=== PATIENT | male | born 1955 | race Caucasian/White ===

== ENCOUNTER → 2023-10-14 06:31 | Outpatient (REF) | payer MEDICARE, OTHER, SELFPAY | LOC: MRI 3T 06:31 | PROVIDERS: ATTENDING PHYSICIAN Physical Medicine & Rehabilitation; FAMILY PHYSICIAN Family Medicine | DX: M54.16 Radiculopathy, lumbar region (principal) | CPT/HCPCS: 72148 ==

== ENCOUNTER 2024-10-04 21:03 | Inpatient (IN) | payer MEDICARE, OTHER, SELFPAY ==
[2024-10-04] VITALS (9 sets, daily range): BP systolic 146–173; BP diastolic 78–98; BMI 27.7
[2024-10-04] MEDS: TORADOL 15 MG IV ×2 (14:53→16:38)
[2024-10-04] MEDS: ZOFRAN 4 MG IV (14:54)
[2024-10-04 15:08] LABS: % Basophils 0.5 % (0-2); % Eosinophils 2.4 % (0-6); % Immature Granulocytes 0.6 % (0-0.5); % Lymphocytes 15.9 % (20.5-51.1); % Monocytes 7.2 % (1.7-9.3); % Neutrophils 73.4 % (42.2-75.2); Absolute Basophils 0.1 10^3/uL (0-0.2); Absolute Eosinophils 0.3 10^3/uL (0-0.7); Absolute Immature Granulocytes 0.1 10^3/uL (0-0.05); Absolute Lymphocytes 1.8 10^3/uL (1.2-3.4); Absolute Monocytes 0.8 10^3/uL (0.1-0.6); Absolute Neutrophils 8.4 10^3/uL (1.4-6.5); Hemoglobin 14.9 g/dL (13.0-18.0); Mean Corp Hgb Conc. 34.7 g/dL (33.0-37.0); Mean Corpuscular Hgb 31.6 pg (27.0-31.0); Mean Corpuscular Volume 91.1 fL (80.0-94.0); Mean Platelet Volume 10.2 fL (7.4-10.4); Nucleated Red Blood Cells % 0 % (-); Platelet Count 223 10^3/uL (130-400); Red Blood Cell Count 4.72 10^6/uL (4.70-6.10); Red Cell Dist. Width 13.1 % (11.5-14.5); White Blood Cell Count 11.5 10^3/uL (4.8-10.8)
[2024-10-04 15:21] LABS: ALT (SGPT) 42 U/L (0-50); AST (SGOT) 39 U/L (17-59); Albumin 4.1 g/dl (3.5-5.0); Alkaline Phosphatase 132 U/L (38-126); Blood Urea Nitrogen 22 mg/dl (9-20); Calcium 9.5 mg/dl (8.4-10.2); Carbon Dioxide 26 mmol/L (22-30); Chloride 105 mmol/L (98-107); Estimated Creatinine Clearance 69 ml/min; Glucose 135 mg/dl (70-99); Potassium 5.3 mmol/L (3.5-5.1); Sodium 138 mmol/L (135-145); Total Bilirubin 0.9 mg/dl (0.2-1.3); Total Protein 6.9 g/dl (6.3-8.2); eGFR > 60.00
--- NOTE | 2024-10-04 17:04 | ED.GENMED ---
History of Present Illness
General
Chief Complaint: Flank Pain
Source: patient
Exam Limitations: none
Time Seen by Provider: 10/04/24 14:36
Nursing documentation reviewed up to this point in time: agreed with
History of Present Illness
History of Present Illness:
69-year-old male presenting to the emergency department today with concerns of left-sided flank discomfort over the past few hours described as sharp severe with associated nausea. Feels similar to his previous kidney stones.
Past History
Past History
ED Past Medical History: Negative CAD, HTN or Hypercholesterolemia
ED Past Surgical History: Negative Cardiac
Social History
Tobacco: Non-smoker
Alcohol: None
Drug: None
Personal:
Living: with family
Employment: Employed
Family History
Family History: Early CAD (Age 32 and his brother) and CAD
Review of Systems
Review of Systems
Allergies reviewed?: Yes
All Other Systems: ROS reviewed and negative except as documented in HPI and ROS
Phy Exam
Physical Exam
Physical Exam:
GENERAL: Alert , in no apparent distress
EYE: pupils equal and reactive
NECK: Supple, no significant adenopathy.
ENT: o/p clr, mmm.
CARDIAC: Regular rate and rhythm .
LUNGS: Clear breath sounds bilaterally, no acute respiratory distress, no wheezes/rales/rhonchi
ABDOMEN: Soft, without focal tenderness, no r/g, no cvat
NEUROLOGICAL: Alert and oriented, no focal neuro deficits
SKIN: Warm and dry, skin intact.
MUSCULOSKELETAL: No edema, well perfused.
PSYCH: Normal and appropriate interaction.
Course
Orders/Labs/Results
Orders:
Orders
10/04/24 14:42
Ketorolac [Toradol] 15 mg IV NOW STA
Ondansetron Injectable [Zofran] 4 mg IV NOW STA
10/04/24 14:43
CT Abd/pel Without Iv Or Oral Urgent
Comment:
Reason For Exam: left flank pain
10/04/24 14:56
Complete Blood Count/With Diff Urgent
Comprehensive Metabolic Panel Urgent
10/04/24 16:37
Ketorolac [Toradol] 15 mg .ROUTE .STK-MED ONE
10/04/24 16:38
Ketorolac [Toradol] 15 mg IV NOW STA
10/04/24 17:03
0.9% Sodium Chloride 1000 ml [Nss] 1,000 ml IV BOLUS
10/04/24 17:22
0.9% Sodium Chloride 1000 ml [Nss] 1,000 ml IV BOLUS
Morphine Sulfate 4 mg IV NOW STA
10/04/24 17:37
Urinalysis Reflex To Culture Urgent
Date Specimen was Collected: 10/04/24
Time Specimen was Collected: 17:27
Urine Microscopic Reflex Cult Urgent
Urine Culture Urgent
GURDEEP Source: U
Specimen Description:
Date Specimen was Collected: 10/04/24
Time Specimen was Collected: 17:27
10/04/24 18:27
Morphine Sulfate 4 mg IV NOW STA
10/04/24 18:37
Atorvastatin [Lipitor] 80 mg PO NOW STA
Gabapentin [Neurontin] 300 mg PO NOW STA
Sotalol [Betapace] 80 mg PO NOW STA
10/04/24 18:38
Ezetimibe [Zetia] 10 mg PO ONCE ONE
10/04/24 19:36
Tamsulosin [Flomax] 0.4 mg PO NOW STA
10/04/24 20:14
CefTRIAXone [Rocephin] 1,000 mg IV NOW STA
Abnormal Lab Results
10/04/24 10/04/24
14:56 17:37
WBC 11.5 H 10^3/uL
(4.8-10.8)
MCH 31.6 H pg
(27.0-31.0)
Abs Immat Gran (auto) 0.1 H 10^3/uL
(0-0.05)
Absolute Neuts (auto) 8.4 H 10^3/uL
(1.4-6.5)
Absolute Monos (auto) 0.8 H 10^3/uL
(0.1-0.6)
Immature Gran % 0.6 H %
(0-0.5)
Lymphocytes % 15.9 L %
(20.5-51.1)
Potassium 5.3 H mmol/L
(3.5-5.1)
BUN 22 H mg/dl
(9-20)
Glucose 135 H mg/dl
(70-99)
Alkaline Phosphatase 132 H U/L
(38-126)
Ur Occult Blood Reflex 4+ A
(Negative)
Leukocyte Esterase Rfl 2+ A
(Negative)
Urine RBC 60-70 A /HPF
(0-2)
Urine WBC (Reflex) 21-25 A /HPF
(0-5)
Urine Bacteria (Reflex) Few A
(Negative)
Urine Albumin (Reflex) 2+ A
(Neg - Trace)
10/04/24 14:56
10/04/24 14:56
Vital Signs
Initial and Last Documented VS:
Initial Vital Signs
Temp Pulse Resp BP Pulse Ox
97.6 F 64 16 150/93 98
10/04/24 14:23 10/04/24 14:23 10/04/24 14:23 10/04/24 14:23 10/04/24 14:23
Last Documented Vital Signs
Temp Pulse Resp BP Pulse Ox
97.6 F 71 12 156/93 96
10/04/24 14:23 10/04/24 20:00 10/04/24 20:00 10/04/24 20:00 10/04/24 19:45
MDM/Problems Addressed
MDM/Problems Addressed:
69-year-old male presenting to the emergency department today with concerns of left-sided flank discomfort over the past few hours. Associated nausea feel similar to previous kidney stones. On arrival vital signs are normal. Patient no distress
no reproducible pain. CT scan showing 6.5 mm stone to the left ureter. Labs without emergent findings patient given 2 doses of Toradol still with significant pain was given dose of morphine still pain significant given second dose still with
ongoing pain Case then discussed with urology they plan to take him to the OR tomorrow. Plan for n.p.o. midnight. Was given a dose of ceftriaxone as urinalysis showed some evidence of inflammation.
*Critical Care Note
Total Time (30-74mins, 75-104mins- exclusive of procedures): Not Applicable
ED Attending Note
-
Portions of this chart may have been created with voice recognition software.� Occasional wrong word or��sound alike� substitutions may have occurred due to the inherent limitations of voice recognition software.
Discharge Plan
Departure
Patient Disposition: Admit
Date of Disposition: 10/04/24
Time of Disposition: 20:35
Admit to: Med/Surg
Admit to doctor: Urszula
Presentation/result/management discussed w/ accepting MD/DO: Hospitalist
Patient with high blood pressure during this ER visit?: No
Condition: Good
Covid-19: Not Applicable
Discharge Problem:
Calculus, ureteral
Prescriptions:
No Action
aspirin 81 MG tablet,delayed release (DR/EC)
81 mg PO DAILY
nitroglycerin 0.4 MG tablet, sublingual
0.4 mg sublingual [id number] PRN (Reason: chest pain) Qty: 30 3RF
multivitamin Tablet
1 tab PO DAILY
atorvastatin 80 mg Tablet
80 mg PO HS
cetirizine [Zyrtec] 10 mg Tablet
10 mg PO HS
sotalol 120 mg Tablet
120 mg PO BID
lisinopril 10 mg Tablet
10 mg PO DAILY
gabapentin 300 mg Capsule
300 mg PO BID
zolpidem [Ambien] 10 mg Tablet
10 mg PO HSPRN PRN (Reason: SLEEP)
finasteride [Proscar] 5 mg Tablet
5 mg PO DAILY
Eliquis 5 mg Tablet
5 mg PO BID
Repatha SureClick 140 mg/mL Pen Injector
140 mg SC Q2W
Glucosamine Chondroitin
1 cap PO BID
Theralith XR 3.75-45-45-49.5 mg Tablet Extended Release
2 tab PO BID
pantoprazole [Protonix] 40 mg tablet,delayed release (DR/EC)
40 mg PO DAILY Qty: 30 0RF
Rx Instructions:
Daily for 30 days post op, then STOP
Referrals:
Rosemarie Lazo MD [Family Provider] -
Interventions
Interventions:
*Risk Screen - Suicide Last Done: 10/04/24 14:23
*General Assessment Last Done: 10/04/24 14:23
*Neglect/Abuse Screening Last Done: 10/04/24 19:45
*ED COVID-19 Vaccine History Last Done: 10/04/24 14:23
QB-Zrxvpq-Jwhpbjaflb Assessment Last Done: 10/04/24 19:11
ED-Male Genitourinary Assessment Last Done: 10/04/24 19:12
Discharge Date and Time
Print Language: DANISH
[2024-10-04] MEDS: NSS 1000 IV ×3 (17:31→23:08)
[2024-10-04] MEDS: MORPHINE SULFATE 4 MG IV ×3 (17:33→23:20)
[2024-10-04 17:57] LABS: Urine Albumin 2+ (Neg - Trace); Urine Bilirubin Negative (Negative); Urine Character Clear (Clear); Urine Color Yellow; Urine Glucose Negative (Negative); Urine Ketone Negative (Negative); Urine Leukocyte 2+ (Negative); Urine Nitrite Negative (Negative); Urine Occult Blood 4+ (Negative); Urine Urobilinogen Negative (Neg - 1+)
[2024-10-04 18:14] LABS: Urine Hyaline Cast 0-2 /LPF (0-2); Urine Mucus Moderate; Urine Squamous Cell 21-25 /LPF (Few)
[2024-10-04 18:15] LABS: Urine Red Blood Cell 60-70 /HPF (0-2); Urine White Cell 21-25 /HPF (0-5)
[2024-10-04 18:16] LABS: Urine Bacteria Few (Negative)
[2024-10-04] MEDS: NEURONTIN 300 MG PO (18:48)
[2024-10-04] MEDS: BETAPACE 80 MG PO (18:48)
[2024-10-04] MEDS: ZETIA 10 MG PO (19:22)
[2024-10-04] MEDS: LIPITOR 80 MG PO (19:22)
[2024-10-04] MEDS: FLOMAX 0.4 MG PO (19:47)
[2024-10-04] MEDS: ROCEPHIN 1000 MG IV (20:29)
--- NOTE | 2024-10-04 20:33 | W.PN.URO.CBU ---
Today's Communication / Plan
-
npo for op room mon appox 230
Assessment / Plan
-
mid left 6.5 uretal stone no fevr buit pain will admit rtrial of passage but if fails then left u/l/s tomorrow revoiewed cat scan did hand p consented alt tx and complication described spoke with also
Diagnosis
-
Date of Service: October 04, 2024
-
Patient Diagnosis:left ureteral stone with intractable pain left hydro
Post Op Day:
Subjective
-
colic no fevr chills
Objective
-
Vital Signs
Temp Pulse Resp BP Pulse Ox
97.6 F 71 12 156/93 96
10/04/24 14:23 10/04/24 20:00 10/04/24 20:00 10/04/24 20:00 10/04/24 19:45
Laboratory Results
10/04/24 14:56
10/04/24 14:56
Review of Systems
-
: Flank Pain
Physical Exam
-
General - well developed, well nourished, no acute distress
Chest - clear bilaterally
Abdomen - soft, non-tender, positive bowel sounds, left CVAT, no incisional pain or distention
Genitalia - normal
Rectal - normal
Skin - warm & dry with no rash
Neuro - AOx3, no motor deficits
Extremities - no clubbing, no cyanosis, no edema
Incision - clean, dry
Dressing - clean, dry, intact
Care Review
Data Reviewed
Discussed with: Hospitalist, Nursing and Family
CT Scan: Image Pers Reviewed
--- NOTE | 2024-10-04 20:35 | HPS.HSE ---
Family Physician
-
Family Physician: Rosemarie Lazo MD
Chief Complaint
-
Flank pain
History of Present Illness
This is a 69-year-old with past medical history significant for atrial fibrillation status post ablation and not currently on anticoagulation, CAD status post LAD stenting, RCA occlusion, on aspirin, hyperlipidemia, hypertension, nephrolithiasis who
presents to the emergency department with left-sided flank pain.
Patient reports acute onset of left-sided flank pain at around 10 AM today. He reports associated vomiting. He denies any fevers or chills. He denies any hematuria. Reports prior history of nephrolithiasis with passing about 1 mm stones in the
past. Patient denies any dysuria, frequency urgency or incontinence.
In the emergency department he was afebrile, blood pressure was 156/90 with a pulse of 71. CBC shows a white count of 11.5 but otherwise unremarkable. Electrolytes BUN/creatinine within the normal range except for a potassium of 5.3. His UA is
positive for leukocyte esterase WBCs and a few bacteria as well as blood. CT of the abdomen pelvis shows a 6.5 mm obstructing left mid ureteral stone, numerous left kidney nephroliths with the largest being about 5 mm.
Medical History
Past Medical History
Past Medical History: Reports Arrhythmia (Paroxysmal atrial fibrillation status post ablation), CAD (Status post stenting to LAD, RCA occlusion), HTN, Hypercholesterolemia and Other (Nephrolithiasis)
Past Surgical History: Reports Other (Inguinal hernia repair)
Social History
Tobacco: Non-smoker
Alcohol: Occasional
Drug: None
Personal:
Living: With Family
Family History
Family History: Not pertinent
Allergies / Home Medications
Allergies reflects when Allergies were last updated in [facility].
Home Medications with original date entered in [facility]
Allergy/Medication List:
Allergies
Allergy/AdvReac Type Severity Reaction Status Date / Time
hydrocodone bitartrate Allergy Nausea / Verified 10/04/24 14:26
[From Vicodin] Vomiting
pollen extracts Allergy SEASONAL Verified 10/04/24 14:26
ALLERGIES
Sutures Allergy SEVERE Verified 10/04/24 14:26
SKIN
REACTION
Home Medications
aspirin 81 mg tablet,delayed release 81 mg PO DAILY 10/13/12
nitroglycerin 0.4 mg sublingual tablet 0.4 mg sublingual [id number] PRN chest pain #30 tabs 08/10/14
Glucosamine Chondroitin 1 cap PO BID 05/10/23
atorvastatin 80 mg tablet 80 mg PO HS 05/10/23
evolocumab 140 mg/mL subcutaneous pen injector (Repatha SureClick) 140 mg SC Q2W 05/10/23
gabapentin 300 mg capsule 300 mg PO BID 05/10/23
lisinopril 10 mg tablet 10 mg PO DAILY 05/10/23
multivitamin 1 tab PO DAILY 05/10/23
sotalol 80 mg tablet 80 mg PO BID 05/10/23
zolpidem 10 mg tablet (Ambien) 10 mg PO HSPRN PRN SLEEP 05/10/23
vit B6-mag cit,ox-potassium cit 3.75 mg-45 mg-45 mg-49.5 mg tablet ER (Theralith XR) 2 tab PO BID 06/24/23
pantoprazole 40 mg tablet,delayed release (Protonix) 40 mg PO DAILY #30 tabs 08/07/23
ezeimibe 10mg tablet, 10mg po daily
Review of Systems
-
Constitutional: Reports No Symptoms
EENT: Reports No Symptoms
Respiratory: Reports No Symptoms
Cardiac: Reports No Symptoms
Abdomen/GI: Reports Nausea and Vomiting
: Reports Flank Pain
Musculoskeletal: Reports No Symptoms
Skin: Reports No Symptoms
Neurological: Reports No Symptoms
Endocrine: Reports No Symptoms
Hematologic/Lymphatic: Reports No Symptoms
Psych: Reports No Symptoms
Physical Exam
Vital Signs
Vital Signs
Temp Pulse Resp BP Pulse Ox
97.6 F 71 12 156/93 96
10/04/24 14:23 10/04/24 20:00 10/04/24 20:00 10/04/24 20:00 10/04/24 19:45
Physical Exam
General: Well Developed, Well Nourished and Pain
HEENT: NormoCephalic, Anicteric, Moist mucous membranes, Atraumatic and PERRLA
Respiratory: Clear
Cardiac: S1/S2 and Regular Rhythm
Breast: Deferred by me
GI: Soft, Non Tender, Non Distended and Normal Bowel Sounds
Rectal: Deferred by Provider
Genito-urinary: Costovertebral angle tend
Musculoskeletal: No Clubbing, No Cyanosis and No Edema
Skin: Warm
Neuro: AO x 3 and Nonfocal/grossly intact
Hematologic/Lymphatic: No Lymphadenopathy
Psych: Calm
Laboratory Results
-
10/04/24 14:56
10/04/24 14:56
Laboratory Results
Total Bilirubin 0.9 mg/dl (0.2-1.3) 10/04/24 14:56
AST 39 U/L (17-59) 10/04/24 14:56
ALT 42 U/L (0-50) 10/04/24 14:56
Alkaline Phosphatase 132 U/L (38-126) H 10/04/24 14:56
Data Reviewed
-
CT Scan: Report Reviewed by me
Lab Data: Labs Reviewed by me
Old Records: Reviewed
Impression/Plan
-
IMPRESSION:
69 M, h/o afib s/p ablation not on AC (eliquis complicated by hematuria), CAD s/p stenting 10 years ago on aspirin presents with left flank pain and is found to have a 6.5 mm obstructing left mid ureteral stone. HD stable and afebrile. Mild
leukocytosis. U/A is equivocal but infected stone can't be ruled out. Renal function is preserved.
PLAN:
1. Obstructing left mid ureteral stone - Mild hydro with moderate left ureteral and pelvicalyceal dilation superior to the calculus.
- admit to med/surg
- npo after midnight
- urine cultures
- IV fluids, tamsulosin
- i/o
- ceftriaxone 1g daily
- pain control and antiemetics
- urology aware and consulted, likely OR at 2pm
2. AFIB
- continue sotalol 80 bid
3. CAD
- continue aspirin statin
- conintue lisinopril
DVT PPX - SCDs until procedure
Code status - Full Code
[2024-10-04] MEDS: NEURONTIN PO (23:52)
[2024-10-05] VITALS (8 sets, daily range): BP systolic 102–145; BP diastolic 62–94; BMI 28.5
[2024-10-05 07:41] LABS: Hematocrit 42.1 % (39.0-52.0); Hemoglobin 14.1 g/dL (13.0-18.0); Mean Corp Hgb Conc. 33.5 g/dL (33.0-37.0); Mean Corpuscular Hgb 30.9 pg (27.0-31.0); Mean Corpuscular Volume 92.3 fL (80.0-94.0); Platelet Count 191 10^3/uL (130-400); Red Blood Cell Count 4.56 10^6/uL (4.70-6.10); Red Cell Dist. Width 13.3 % (11.5-14.5); White Blood Cell Count 11.4 10^3/uL (4.8-10.8)
[2024-10-05 07:51] LABS: INR 1.09; PT 14.4 Sec (11.4-14.6)
[2024-10-05 08:16] LABS: Blood Urea Nitrogen 19 mg/dl (9-20); Calcium 8.8 mg/dl (8.4-10.2); Carbon Dioxide 27 mmol/L (22-30); Chloride 106 mmol/L (98-107); Estimated Creatinine Clearance 76 ml/min; Glucose 101 mg/dl (70-99); Magnesium 1.8 mg/dl (1.6-2.3); Potassium 4.3 mmol/L (3.5-5.1); Sodium 140 mmol/L (135-145); eGFR > 60.00
[2024-10-05] MEDS: FLOMAX PO (08:24)
[2024-10-05] MEDS: NEURONTIN PO (08:24)
[2024-10-05] MEDS: ZESTRIL PO (08:24)
[2024-10-05] MEDS: ASPIR LOW (ENTERIC COATED) PO (08:24)
[2024-10-05] MEDS: BETAPACE PO (08:24)
[2024-10-05] MEDS: NSS 1000 IV (08:53)
[2024-10-05] MEDS: BETAPACE 80 MG PO ×2 (08:55→19:11)
[2024-10-05] MEDS: ASPIR LOW (ENTERIC COATED) 81 MG PO (08:55)
[2024-10-05] MEDS: NEURONTIN 300 MG PO ×2 (08:55→17:36)
[2024-10-05] MEDS: ZESTRIL 10 MG PO (08:56)
[2024-10-05] MEDS: FLOMAX 0.4 MG PO (08:56)
--- NOTE | 2024-10-05 09:41 | PTCARENOTE ---
Patient placed on telemetry per protocol for medication Betapace; not initiation dose as patient confirmed taking medication at home.
--- NOTE | 2024-10-05 10:21 | CM ---
Patient seen at bedside with patient . Patient stated that he lives in a 2 story home with no DME at home. Patient is independent of ADL's and IADL's. Patient PCP is Dr. Lazo and he uses the [facility] in [place]. Patient stated that he plans to go to
[place] and will be visiting with grandchildren. Patient stated that he does not anticipate needing any further discharge needs. CM will continue to follow for discharge planning needs.
Plan; home with no needs anticipated at this time
--- NOTE | 2024-10-05 12:00 | W.SUR.PREOP ---
Pre-Operative Surgical Note
-
I have examined this patient prior to the performance of the scheduled procedure.
The patient's condition is unchanged from the time of the current History and
Physical and the patient is able to undergo the scheduled procedure.
To OR for left ULS vs. stent placement ONLY
[2024-10-05] MEDS: AFRIN NASAL SPRAY 1 SPRAYS NASAL (13:40)
--- NOTE | 2024-10-05 13:44 | W.PN.HOSP.TC ---
Addendum entered and electronically signed by Rashel Perez DO 10/06/24 14:19:
CDI: Paroxysmal AF
Original Note:
Today's Communication/Plan
-
* Continue angialgics and antiemetics.
* OR today per urology.
* NPO.
Assessment / Plan
Assessment / Plan
Assessment
Wesley Dorado, 69-year-old male, has had left-sided flank pain and vomiting since 10-04-24. History of nephrolithiasis. CT in the ED showed 6.5 mm obstructing left mid-ureteral stone. Leukocytosis and UA concerning for infection.
Impression and plan
LEFT ureterolithiasis with obstruction
Acute urinary tract infection secondary to above
Acute LEFT ureterohydronephrosis secondary to above
Multiple bilateral nephroliths
History of nephrolithiasis
- NPO; IV hydration.
- Continue tamsulosin and pain management.
- Ceftriaxone.
- Urology following; planned extraction with stent placement 10-02-24.
Atrial fibrillation
Status-post ablation
- Continue sotalol.
Primary hypertension
- Continue lisinopril.
Coronary artery disease
- Continue aspirin, atorvastatin.
Thromboprophylaxis
- Sequential compression device.
Code status
- Full.
Anticipated Discharge: Within 24 hours
Subjective/Interval History
-
Date of Service: October 05, 2024
Pain much better.
Objective Data
-
Labs:
Laboratory Results
10/05/24
07:26
WBC 11.4 H
Hgb 14.1
Hct 42.1
Plt Count 191
PT 14.4
INR 1.09
Sodium 140
Potassium 4.3
Chloride 106
Carbon Dioxide 27
BUN 19
Creatinine 1.0
Glucose 101 H
Calcium 8.8
Vital Signs:
Vital Signs
Temp Pulse Resp BP Pulse Ox
98.0 F 95 16 132/82 97
10/05/24 12:54 10/05/24 12:54 10/05/24 12:54 10/05/24 12:54 10/05/24 12:54
I&O
10/04/24 10/05/24 10/06/24
06:59 06:59 06:59
Output Total 1000 / 1000
Balance -1000 / -1000
Review of Systems
-
History Source: Patient
Constitutional: Reports No Symptoms
EENT: Reports No Symptoms Reported
Respiratory: Reports No Symptoms
Cardiac: Reports No Symptoms
Abdomen/GI: Reports No Symptoms
Genitourinary: Reports No Symptoms
Musculoskeletal: Reports No Symptoms
Skin: Reports No Symptoms
Neuro: Reports No Symptoms
Endocrine: Reports No Symptoms
Hematologic / Lymphatic: Reports No Symptoms
Allergy / Immunology: Reports No Symptoms
Physical Exam
-
General: No Apparent Distress and Comfortable
HEENT: Normocephalic, Atraumatic, Moist Mucous Membranes, Anicteric and No Ptosis
Respiratory: Clear to Auscultation and Non Labored Respirations
Cardiac: Regular Rhythm and S1/S2
GI: Soft, Nontender, Nondistended and No Hepatosplenomegaly
Genito-urinary: No Costovertebral Tender
Musculoskeletal: No Clubbing, No Cyanosis and No Edema
Skin: Warm, Dry and IV Access / Catheter Site
Neuro: Awake, Alert, Oriented, No Motor Deficits and No Sensory Deficits
Hematologic / Lymphatic: No Lymphadenopathy
Psych: Calm
--- NOTE | 2024-10-05 16:35 | W.IMMPOSTOP ---
Surgical Immed Post Op Note
-
Primary Surgeon: Gurwinder
Pre-op Diagnosis: Obstructing mid left ureteral stone
Post-op Diagnosis: Same
Procedure Performed: left URS/LL/stone extraction/stent placement
Anesthesia Type: LMA
Specimen / Cultures: stones for analysis/None
Estimated Blood Loss: Negligible
Drains: 4.7Fr x 26 cm JJ left ureteral stent
Complications: None
Operative Findings:
Impacted 7 mm stone within mid left ureter w/ significant urothelial inflammatory changes - stone fragmented and evacuated via basket in entirety.
Final KUB and cysto confirming satisfactory positioning of left ureteral stent at conclusion of procedure.
Scant bleeding from prostate gland - satisfactory hemostasis on final cysto (actively on ASA).
Spouse updated post-op via telephone.
[2024-10-05] MEDS: Pyridium 200 MG PO (16:43)
[2024-10-05] MEDS: DETROL LA 4 MG PO (16:43)
--- NOTE | 2024-10-05 16:43 | W.DCSUMMARY ---
Documented by User: Floyd Simmons MD, Resident 10/05/24 17:02
Discharge Summary
Discharge Data
Date of Admission: 10/04/24
Date of Discharge: 10/05/24
-
Pending Results: No
Hospital Course
Primary discharge diagnosis
* LEFT ureterolithiasis with obstruction
* Acute urinary tract infection secondary to above
* Acute LEFT ureterohydronephrosis secondary to above
Secondary discharge diagnoses
- Multiple bilateral nephroliths
- History of nephrolithiasis
- Atrial fibrillation, status-post ablation
- Primary hypertension
- Coronary artery disease
Hospital course
Wesley Dorado, 69-year-old male, was admitted with left-sided flank pain and vomiting on 10-04-24. CT in the ED showed 6.5 mm obstructing left mid-ureteral stone, and lab work was significant for leukocytosis and UA concerning for infection. He was
started on pain management, IV hydration, made NPO and admitted for stone removal. He underwent successful stone extraction and stent placement by urology on 10-05-24. His symptoms had resolved on day 2, and he tolerated the procedure well. He
remained asymptomatic and hemodynamically stable. He will be discharged home with tamsulosin and cefdinir, and instructions for pain management. Follow-up with primary in under a week, and urology for eventual stent removal.
Discharge Plan
-
Patient Disposition: Home (Routine Discharge)
Discharge Diagnosis/Procedures: obstructing left ureteral stone s/p left stent placement
Condition: Good
Diet: Regular
Activity: No restrictions
Driving Restrictions: No driving for 24 hours
Bathing Restrictions: None
Instructions: Ureteroscopy - Discharge instructions
Referrals:
Rodney Purdy MD [Active] -
(Please call Dr. Purdy's office on Saturday10/06/24 to schedule your outpatient stent removal procedure in 2 weeks (upon your return from [place]).
Dr. Purdy will leave samples of Gemtesa (medication to minimize stent discomfort) x2 weeks for you tomorrow to pickle cutter from the office.)
Rosemarie Lazo MD [Family Provider] - in less than 1 week
Prescriptions:
New
ibuprofen 400 mg tablet
400 mg PO Q6H PRN (Reason: Pain) 14 Days Qty: 60 1RF
acetaminophen 500 mg tablet
1,000 mg PO Q6H PRN (Reason: Pain) 14 Days Qty: 60 0RF
tamsulosin 0.4 mg capsule
0.4 mg PO HS 14 Days Qty: 14 0RF
cefdinir 300 mg capsule
300 mg PO Q12H 6 Days Qty: 12 0RF
Continued
aspirin 81 MG tablet,delayed release (DR/EC)
81 mg PO DAILY
nitroglycerin 0.4 MG tablet, sublingual
0.4 mg sublingual [id number] PRN (Reason: chest pain) Qty: 30 3RF
multivitamin Tablet
1 tab PO DAILY
atorvastatin 80 mg Tablet
80 mg PO HS
cetirizine [Zyrtec] 10 mg Tablet
10 mg PO HS
sotalol 120 mg Tablet
120 mg PO BID
lisinopril 10 mg Tablet
10 mg PO DAILY
gabapentin 300 mg Capsule
300 mg PO BID
zolpidem [Ambien] 10 mg Tablet
10 mg PO HSPRN PRN (Reason: SLEEP)
finasteride [Proscar] 5 mg Tablet
5 mg PO DAILY
Rx Instructions:
pt no longer taking- stopped a year ago
Repatha SureClick 140 mg/mL Pen Injector
140 mg SC Q2W
Glucosamine Chondroitin
1 cap PO BID
Theralith XR 3.75-45-45-49.5 mg Tablet Extended Release
2 tab PO BID
pantoprazole [Protonix] 40 mg tablet,delayed release (DR/EC)
40 mg PO DAILY Qty: 30 0RF
Rx Instructions:
Daily for 30 days post op, then STOP
10/05/24 - pt no longer taking
Held
Eliquis 5 mg Tablet
5 mg PO BID
Hold Instructions: Per cardiology
Rx Instructions:
pt no longer taking states ' i stopped over a year ago'
Discharge Orders:
Discharge Patient (As Directed); Ordered 10/05/24
Ordered By: Floyd Simmons
Discharge Date and Time
Print Language: NOR[place] KOREAN

Documented by User: Rashel Perez DO 10/05/24 17:15
Discharge Summary
Discharge Data
Date of Admission: 10/04/24
Date of Discharge: 10/05/24
Total time spent discharging patient (in min): 31
Discharge Plan
-
Patient Disposition: Home (Routine Discharge)
Discharge Diagnosis/Procedures: obstructing left ureteral stone s/p left stent placement
Condition: Good
Diet: Regular
Activity: No restrictions
Driving Restrictions: No driving for 24 hours
Bathing Restrictions: None
Instructions: Ureteroscopy - Discharge instructions
Referrals:
Rodney Purdy MD [Active] -
(Please call Dr. Purdy's office on Saturday10/06/24 to schedule your outpatient stent removal procedure in 2 weeks (upon your return from [place]).
Dr. Purdy will leave samples of Gemtesa (medication to minimize stent discomfort) x2 weeks for you tomorrow to pickle cutter from the office.)
Rosemarie Lazo MD [Family Provider] - in less than 1 week
Prescriptions:
New
ibuprofen 400 mg tablet
400 mg PO Q6H PRN (Reason: Pain) 14 Days Qty: 60 1RF
acetaminophen 500 mg tablet
1,000 mg PO Q6H PRN (Reason: Pain) 14 Days Qty: 60 0RF
tamsulosin 0.4 mg capsule
0.4 mg PO HS 14 Days Qty: 14 0RF
cefdinir 300 mg capsule
300 mg PO Q12H 6 Days Qty: 12 0RF
Continued
aspirin 81 MG tablet,delayed release (DR/EC)
81 mg PO DAILY
nitroglycerin 0.4 MG tablet, sublingual
0.4 mg sublingual [id number] PRN (Reason: chest pain) Qty: 30 3RF
multivitamin Tablet
1 tab PO DAILY
atorvastatin 80 mg Tablet
80 mg PO HS
cetirizine [Zyrtec] 10 mg Tablet
10 mg PO HS
sotalol 120 mg Tablet
120 mg PO BID
lisinopril 10 mg Tablet
10 mg PO DAILY
gabapentin 300 mg Capsule
300 mg PO BID
zolpidem [Ambien] 10 mg Tablet
10 mg PO HSPRN PRN (Reason: SLEEP)
finasteride [Proscar] 5 mg Tablet
5 mg PO DAILY
Rx Instructions:
pt no longer taking- stopped a year ago
Repatha SureClick 140 mg/mL Pen Injector
140 mg SC Q2W
Glucosamine Chondroitin
1 cap PO BID
Theralith XR 3.75-45-45-49.5 mg Tablet Extended Release
2 tab PO BID
pantoprazole [Protonix] 40 mg tablet,delayed release (DR/EC)
40 mg PO DAILY Qty: 30 0RF
Rx Instructions:
Daily for 30 days post op, then STOP
10/05/24 - pt no longer taking
Held
Eliquis 5 mg Tablet
5 mg PO BID
Hold Instructions: Per cardiology
Rx Instructions:
pt no longer taking states ' i stopped over a year ago'
Discharge Orders:
Discharge Patient (As Directed); Ordered 10/05/24
Ordered By: Floyd Simmons
Discharge Date and Time
Print Language: [place]
[2024-10-05] MEDS: STERILE WATER FOR INJECTION 10 ML IV (19:11)
[2024-10-05] MEDS: ROCEPHIN 1000 MG IV (19:11)
--- NOTE | 2024-10-06 10:20 | PN.CDI ---
CDI
- -
CDI:
Physician Documentation Request
Admit Date: 10/04/24 21:03
Dear Doctor,
Please review the following and provide your response in the progress notes.
Clinical Indicators:
- 10/04 H&P indicates pmh paroxysmal atrial fibrillation s/p ablation
- 'not on AC (eliquis complicated by hematuria)'
- 10/05 DC summary indicates atrial fibrillation without specificity
- No EKG on this admission
If possible, please provide further specificity regarding atrial fibrillation, such as:
Paroxysmal atrial fibrillation - terminates spontaneously or with intervention within 7 days of onset
Persistent atrial fibrillation - episodes of continuous AF that last more than 7 days and do not self-terminate
Permanent atrial fibrillation - when a decision has been made to accept the presence of AF and there is no further attempt to restore or maintain sinus rhythm
Other - please specify
Use of terms such as suspected, likely, concern for, or probable (associated with a specific diagnosis that is being evaluated, monitored, or treated as if it exists) are acceptable and can be coded in the inpatient setting, when documented at the
time of discharge.
Thank you,
Mya Chowdary RN
CDI Specialist
Please use your independent medical judgment in providing your response.
== END 2024-10-05 19:50 | disposition home or self-care (01) | DRG 661 ==
LOC: 2 SOUTH 21:03
PROVIDERS: Physician Assistant; Student in an Organized Health Care Education/Training Program; Surgery; ADMITTING PHYSICIAN Internal Medicine; ATTENDING PHYSICIAN Internal Medicine; CONSULT PHYSICIAN Specialist; EMERGENCY PHYSICIAN Emergency Medicine; FAMILY PHYSICIAN Family Medicine
PROC: 0T778DZ Dilation of Left Ureter with Intraluminal Device, Via Natural or Artificial Opening Endoscopic (ICD-10-PCS; 2024-10-05)
PROC: 0TC78ZZ Extirpation of Matter from Left Ureter, Via Natural or Artificial Opening Endoscopic (ICD-10-PCS; 2024-10-05)
DX: N13.6 Pyonephrosis (principal); I48.0 Paroxysmal atrial fibrillation; I25.10 Atherosclerotic heart disease of native coronary artery without angina pectoris; I10 Essential (primary) hypertension; N42.1 Congestion and hemorrhage of prostate; Z79.01 Long term (current) use of anticoagulants; Z82.49 Family history of ischemic heart disease and other diseases of the circulatory system; Z79.899 Other long term (current) drug therapy; Z87.442 Personal history of urinary calculi; Z79.82 Long term (current) use of aspirin
CPT/HCPCS: 74018; 74176; 76000; 80048; 80053; 81003; 81015; 83735; 85025; 85027; 85610; 87086; 96361; 96374; 96375; 96376; 99285; A4300; C1758; C1769; C1894; C2617